=== PATIENT | female | born 1945 | race Caucasian/White ===

== ENCOUNTER 2017-12-23 13:11 | Emergency (ER) | payer OTHER ==
[2017-12-23] MEDS ORDERED: PANTOPRAZOLE 40 MG VIAL ONE (13:59)
[2017-12-23] MEDS ORDERED: PANTOPRAZOLE 40 MG VIAL IV ONE (14:00)
[2017-12-23] MEDS ORDERED: IV NS 0.9% 500 ML BAG IV ONE (14:00)
== END 2017-12-23 15:28 | disposition home or self-care (01) ==
DX: N39.0 Urinary tract infection, site not specified (principal)